=== PATIENT | male | born 1955 | race Caucasian/White ===

== ENCOUNTER 2021-10-16 19:59 | Emergency (ER) | payer OTHER, MEDICAID ==
[~2021-10-16] VITALS: Ht 167.6 cm; Wt 83.5 kg
[2021-10-16 20:10] VITALS: BP_SYST 153
[2021-10-16 20:42] LABS: HEMOGLOBIN 15.7 g/dL (14.0-18.0); MEAN CORPUSCULAR VOLUME 86 fL (79.0-98.0)
[2021-10-16] MEDS: IBUPROFEN 800 MG TABLET PO ONE (20:53)
[2021-10-16 20:58] LABS: BASOPHILS # (AUTO) 0.1 K/uL (0.0-0.2); BASOPHILS % (AUTO) 0.5 % (0.0-2.0); EOSINOPHILS # (AUTO) 0.3 K/uL (0.0-0.4); HEMATOCRIT 46.2 % (36-54); LYMPHOCYTES # (AUTO) 1.4 K/uL (1.0-5.5); LYMPHOCYTES % (AUTO) 13.6 % (20.5-51.5); MEAN CORPUSCULAR HEMOGLOBIN 29 pg (27-31); MEAN CORPUSCULAR HGB CONC 34 % (32-36); MONOCYTES # (AUTO) 0.7 K/uL (0.0-1.0); MONOCYTES % (AUTO) 6.7 % (1.7-9.3); NEUTROPHILS # (AUTO) 7.7 K/uL (1.8-7.7); NEUTROPHILS % (AUTO) 76.2 % (40.0-70.0); PLATELET COUNT (AUTO) 172 K/uL (130-430); RED BLOOD CELL COUNT(AUTO) 5.35 MIL/uL (4.2-6.2); RED CELL DISTRIBUTION WIDTH 13.7 % (9.0-15.0)
[2021-10-16 21:08] LABS: ANION GAP 10 (5-15); CHLORIDE 100 mmol/L (98-107); CREATININE 1.02 mg/dL (0.55-1.30); GLUCOSE 131 mg/dL (70-99); POTASSIUM 4.3 mmol/L (3.5-5.1); SODIUM SERUM 142 mmol/L (136-145); UREA NITROGEN, BLOOD 15 mg/dL (8-21)
[2021-10-16 21:14] LABS: ALANINE AMINOTRANSFERASE 91 U/L (12-78); ALBUMIN 4.1 g/dL (3.4-4.8); ASPARTATE AMINOTRANSFERASE 40 U/L (10-37); TOTAL BILIRUBIN 0.4 mg/dL (0.0-1.0)
[2021-10-16 21:28] LABS: BILIRUBIN,URINE NEGATIVE (NEGATIVE); BLOOD, URINE 3+ (NEGATIVE); COLOR,URINE YELLOW (YELLOW); GLUCOSE,URINE NEGATIVE (NEGATIVE); KETONES,URINE TRACE (NEGATIVE); LEUKOCYTE ESTERASE ,URINE NEGATIVE (NEGATIVE); NITRITE, URINE NEGATIVE (NEGATIVE); PROTEIN URINE NEGATIVE (NEGATIVE); UROBILINOGEN,URINE 0.2 (0.2-1.0)
[2021-10-16 21:29] LABS: GFR AFRICAN AMERICAN 94 mL/min (>90)
[2021-10-16 21:35] LABS: CLARITY/URINE SLIGHTLY HAZY (CLEAR)
[2021-10-16 21:36] LABS: C-REACTIVE PROTEIN QUANT < 0.2 mg/dL (0-0.5)
[2021-10-16] MEDS ORDERED: IBUP-1971 PO (21:49)
[2021-10-16 22:01] LABS: BACTERIA,URINE FEW /HPF (None Seen); RBC,URINE 20-50 /HPF (0-3); WBC,URINE 0-3 /HPF (0-3)
[2021-10-16 22:02] LABS: CALCIUM OXALATE CRYSTALS,UR 0-10 /HPF (None Seen); MUCUS,URINE None Seen /LPF (None Seen)
[2021-10-16 22:28] VITALS: BP_SYST 132
== END 2021-10-16 22:24 | disposition home or self-care (01) ==
LOC: SED 19:59
DX: N45.2 Orchitis (principal); Z79.899 Other long term (current) drug therapy
CPT/HCPCS: 36415; 76870-TC; 80053; 81000; 85025; 86140; 99284

== ENCOUNTER 2024-04-29 15:01 | Emergency (ER) | payer OTHER, MEDICAID ==
[~2024-04-29] VITALS: Ht 172.7 cm; Wt 77.1 kg
[~2024-04-29 15:01] MED LIST: IBUP-1971 PO
[2024-04-29 15:07] VITALS: BP_SYST 163; PULSE 105; RESP 18; TEMP 98.5; O2SAT 98
[2024-04-29] MEDS ORDERED: DICL50TA9 PO (18:44)
[2024-04-29 21:35] VITALS: BP_SYST 160; PULSE 97; RESP 18; TEMP 98.5; O2SAT 97
== END 2024-04-29 21:35 | disposition home or self-care (01) ==
LOC: SED 15:01
DX: M79.605 Pain in left leg (principal); R22.42 Localized swelling, mass and lump, left lower limb; Z79.899 Other long term (current) drug therapy; Z79.2 Long term (current) use of antibiotics
CPT/HCPCS: 93971; 99284